=== PATIENT | female | born 1955 | race Caucasian/White ===

== ENCOUNTER 2018-08-21 11:12 | Emergency (ER) | payer OTHER ==
--- NOTE | 2018-08-21 12:09 | ER ---
Nurse's Notes [facility] Name: Ricardo Baldwin Age: 62 yrs Sex: Female : 1955 Arrival Date: 08/21/2018 Time: 11:15 Bed 17 Private MD: Madan Bolton T Diagnosis: Other and unspecified disorders of nose and nasal sinuses Presentation: 08/21 11:30 Presenting complaint: Patient states: tenderness to R side of nasal bridge since ss yesterday. Pt now reports paraesthesia sensation to R lower lid since early this morning. Transition of care: patient was not received from another setting of care. Onset of symptoms was August 20, 2018. Risk Assessment: Do you want to hurt yourself or someone else? Patient reports no desire to harm self or others. Initial Sepsis Screen: Does the patient meet any 2 criteria? No. Patient's initial sepsis screen is negative. Does the patient have a suspected source of infection? No. Patient's initial sepsis screen is negative. Care prior to arrival: None. 11:30 Method Of Arrival: Ambulatory ss 11:30 Acuity: DEANNA 4 ss Historical: - Allergies: 11:34 seafood; ss 11:34 PENICILLINS; ss 11:34 Sulfa (Sulfonamide Antibiotics); ss 11:34 Phenergan; ss 11:34 Stadol; ss - PMHx: 11:34 RLS; ss - PSHx: 11:34 Tonsillectomy; Appendectomy; Hysterectomy; L achilles repair; L total knee replacement; ss L humerus repair; laminectomy (lumbar); - Immunization history:: Adult Immunizations up to date. - Social history:: Smoking status: Patient/guardian denies using tobacco. - Ebola Screening: : Patient denies exposure to infectious person Patient denies travel to an Ebola-affected area in the 21 days before illness onset. Screenin:59 Abuse screen: Denies threats or abuse. Denies injuries from another. Nutritional ss screening: No deficits noted. Tuberculosis screening: Never had TB. Fall Risk None identified. Assessment: 11:30 General: Appears in no apparent distress. comfortable, Behavior is calm, cooperative, ss Denies fever, feeling ill, fatigue, chills. Pain: Complains of pain in R side bridge of nose Pain currently is 1 out of 10 on a pain scale. at worst was 5 out of 10 on a pain scale. Quality of pain is described as tender, Pain began "yesterday" Is continuous. Neuro: Level of Consciousness is awake, alert, obeys commands, Oriented to person, place, time, situation, Local [employer] are equal bilaterally Speech is normal, Facial symmetry appears normal, Pupils are PERRLA. Neuro: Reports paresthesias in R lower eyelid Denies weakness blurred vision dizziness, difficulty swallowing, numbness headache. Cardiovascular: Capillary refill < 3 seconds is brisk in bilateral fingers Patient's skin is warm and dry. Respiratory: Airway is patent Respiratory effort is even, unlabored, Respiratory pattern is regular, symmetrical. GI: Patient currently denies diarrhea, nausea, vomiting. : No signs and/or symptoms were reported regarding the genitourinary system. EENT: Nares are clear Oral mucosa is moist. Throat is clear. EENT: Denies blurred vision nasal congestion, difficulty swallowing. Derm: Skin is intact, is healthy with good turgor, Skin is dry, Skin is pink, warm \\T\\ dry. normal. Musculoskeletal: Circulation, motion, and sensation intact. Capillary refill < 3 seconds, is brisk, in bilateral fingers. Range of motion: intact in all extremities, Swelling absent. Vital Signs: 11:34 BP 141 / 87; Pulse 88; Resp 16; Pulse Ox 98% on R/A; Weight 95.25 kg; Height 5 ft. 8 ss in. (172.72 cm); Pain 1/10; 11:34 Body Mass Index 31.93 (95.25 kg, 172.72 cm) ED Course: 11:15 Patient arrived in ED. as 11:15 Madan Bolton MD is Private Physician. as 11:26 Trip Stapleton MD is Attending Physician. gs 11:32 Triage completed. ss 11:32 Neftaly Henson LVN is Primary Nurse. em 11:34 Arm band placed on right wrist. ss 11:59 Patient has correct armband on for positive identification. Bed in low position. Call ss light in reach. Side rails up X 1. 12:22 No provider procedures requiring assistance completed. Patient did not have IV access em during this emergency room visit. Administered Medications: No medications were administered Outcome: 12:08 Discharge ordered by . gs 12:22 Discharged to home ambulatory. em 12:22 Condition: good 12:22 Discharge instructions given to patient, Instructed on discharge instructions, follow up and referral plans. medication usage, Demonstrated understanding of instructions, follow-up care, medications, Prescriptions given X 1. 12:22 Patient left the ED. em Signatures: Neftaly Henson, MAT BELLAN Renetta Warren Shelby, JAZZY RN ss Trip Stapleton MD MD
--- NOTE | 2018-08-21 12:09 | EDPHYS ---
Physician Documentation [facility] Name: Ricardo Baldwin Age: 62 yrs Sex: Female : 1955 Arrival Date: 08/21/2018 Time: 11:15 Bed 17 Private MD: Madan Bolton T ED Physician Trip Stapleton HPI: 08/21 11:54 This 62 yrs old Female presents to ER via Ambulatory with complaints of Nose gs Pain - Swelling, Eye Problem. 11:54 The patient presents with pain. Onset: The symptoms/episode began/occurred acutely, gs yesterday. Modifying factors: The symptoms are alleviated by nothing. the symptoms are aggravated by touching. Associated signs and symptoms: Pertinent negatives: fever. Severity of symptoms: At their worst the symptoms were moderate in the emergency department the symptoms are unchanged. The patient has not experienced similar symptoms in the past. Historical: - Allergies: 11:34 seafood; ss 11:34 PENICILLINS; ss 11:34 Sulfa (Sulfonamide Antibiotics); ss 11:34 Phenergan; ss 11:34 Stadol; ss - PMHx: 11:34 RLS; ss - PSHx: 11:34 Tonsillectomy; Appendectomy; Hysterectomy; L achilles repair; L total knee replacement; ss L humerus repair; laminectomy (lumbar); - Immunization history:: Adult Immunizations up to date. - Social history:: Smoking status: Patient/guardian denies using tobacco. - Ebola Screening: : Patient denies exposure to infectious person Patient denies travel to an Ebola-affected area in the 21 days before illness onset. ROS: 11:54 All other systems are negative. gs Exam: 11:54 Head/Face: Normocephalic, atraumatic. Eyes: Pupils equal round and reactive to light, gs extra-ocular motions intact. Lids and lashes normal. Conjunctiva and sclera are non-icteric and not injected. Cornea within normal limits. Periorbital areas with no swelling, redness, or edema. Neck: Trachea midline, no thyromegaly or masses palpated, and no cervical lymphadenopathy. Supple, full range of motion without nuchal rigidity, or vertebral point tenderness. No Meningismus. Chest/axilla: Normal chest wall appearance and motion. Nontender with no deformity. No lesions are appreciated. Cardiovascular: Regular rate and rhythm with a normal S1 and S2. No gallops, murmurs, or rubs. Normal PMI, no JVD. No pulse deficits. Respiratory: Lungs have equal breath sounds bilaterally, clear to auscultation and percussion. No rales, rhonchi or wheezes noted. No increased work of breathing, no retractions or nasal flaring. Abdomen/GI: Soft, non-tender, with normal bowel sounds. No distension or tympany. No guarding or rebound. No evidence of tenderness throughout. Back: No spinal tenderness. No costovertebral tenderness. Full range of motion. Skin: Warm, dry with normal turgor. Normal color with no rashes, no lesions, and no evidence of cellulitis. MS/ Extremity: Pulses equal, no cyanosis. Neurovascular intact. Full, normal range of motion. Neuro: Awake and alert, GCS 15, oriented to person, place, time, and situation. Cranial nerves II-XII grossly intact. Motor strength 5/5 in all extremities. Sensory grossly intact. Cerebellar exam normal. Normal gait. 11:54 Constitutional: The patient appears alert, awake. 11:54 ENT: TM's: are normal, Nose: Nasal mucosa: edematous, erythematous, tender. 12:09 Head/face: Sinus tenderness, that is mild, is located over the right ethmoid sinus. Vital Signs: 11:34 BP 141 / 87; Pulse 88; Resp 16; Pulse Ox 98% on R/A; Weight 95.25 kg; Height 5 ft. 8 ss in. (172.72 cm); Pain 1/10; 11:34 Body Mass Index 31.93 (95.25 kg, 172.72 cm) MDM: 11:50 Patient medically screened. 11:54 Data reviewed: vital signs, nurses notes. Counseling: I had a detailed discussion with the patient and/or guardian regarding: the historical points, exam findings, and any diagnostic results supporting the discharge/admit diagnosis, the need for outpatient follow up. 12:09 Differential diagnosis: sinusitis. Counseling: I had a detailed discussion with the patient and/or guardian regarding: the presence of at least one elevated blood pressure reading (>120/80) during this emergency department visit. Response to treatment: There is no appreciated change of the patient's symptoms at this time. Special discussion: I have referred the patient to see his PCP for further evaluation of high blood pressure. Administered Medications: No medications were administered Disposition: 08/21/18 12:08 Discharged to Home. Impression: Other and unspecified disorders of nose and nasal sinuses. - Condition is Stable. - Discharge Instructions: Managing Your Hypertension, Nonallergic Rhinitis. - Prescriptions for Clindamycin HCl 150 mg Oral Capsule - take 1 capsule by ORAL route every 8 hours .; 15 capsule. - Medication Reconciliation Form, Thank You Letter, Antibiotic Education, Prescription Opioid Use form. - Follow up: Private Physician; When: 2 - 3 days; Reason: Re-evaluation by your physician. Signatures: Neftaly Henson LVN LVN em Ginette Chatman RN RN ss Trip Stapleton MD MD gs Corrections: (The following items were deleted from the chart) 12:15 12:08 08/21/2018 12:08 Discharged to Home. Impression: rhinosinusitus. Condition is gs Stable. Forms are Medication Reconciliation Form, Thank You Letter, Antibiotic Education, Prescription Opioid Use. Follow up: Private Physician; When: 2 - 3 days; Reason: Re-evaluation by your physician. gs 12:22 12:15 08/21/2018 12:08 Discharged to Home. Impression: Other and unspecified disorders em of nose and nasal sinuses. Condition is Stable. Discharge Instructions: Managing Your Hypertension, Nonallergic Rhinitis. Prescriptions for Clindamycin HCl 150 mg Oral Capsule - take 1 capsule by ORAL route every 8 hours .; 15 capsule. and Forms are Medication Reconciliation Form, Thank You Letter, Antibiotic Education, Prescription Opioid Use. Follow up: Private Physician; When: 2 - 3 days; Reason: Re-evaluation by your physician. gs
== END 2018-08-21 12:22 | disposition home or self-care (01) ==
LOC: ER 11:12
DX: J34.89 Other specified disorders of nose and nasal sinuses (principal); Z88.0 Allergy status to penicillin; Z88.2 Allergy status to sulfonamides; Z88.5 Allergy status to narcotic agent; Z88.8 Allergy status to other drugs, medicaments and biological substances; Z91.013 Allergy to seafood
CPT/HCPCS: 99281

== ENCOUNTER 2020-05-14 | Emergency (ER) | payer OTHER ==
--- NOTE | 2020-05-14 17:05 | ER ---
Nurse's Notes [facility] Name: Ricardo Balwdin Age: 64 yrs Sex: Female : 1955 Arrival Date: 05/14/2020 Time: 15:35 Bed 8 Private MD: Madan Bolton T Diagnosis: COVID Presentation: 05/14 15:59 Chief complaint: Patient states: was at [place] on 05/08/20 and had a 23 hr observation em there, was given the steroids, albuterol treatments and finished Z-pack, Dr. Bolton told her to come to the ER for reevaluation, pt reports chest tightness and shortness of breath on exertion, denies fever, covid swab there was negative. Coronavirus screen: The client reports previous COVID testing was negative. Date of collection: May 08, 2020. Ebola Screen: Patient negative for fever greater than or equal to 101.5 degrees Fahrenheit, and additional compatible Ebola Virus Disease symptoms Patient denies exposure to infectious person. Patient denies travel to an Ebola-affected area in the 21 days before illness onset. No symptoms or risks identified at this time. Initial Sepsis Screen: Does the patient meet any 2 criteria? HR > 90 bpm. No. Patient's initial sepsis screen is negative. Does the patient have a suspected source of infection? Yes: Productive cough/pneumonia. Risk Assessment: Do you want to hurt yourself or someone else? Patient reports no desire to harm self or others. Onset of symptoms was May 08, 2020. 15:59 Method Of Arrival: Ambulatory em 15:59 Acuity: DEANNA 3 em Triage Assessment: 16:35 Respiratory: the patient has mild shortness of breath. vg1 Historical: - Allergies: 16:06 PENICILLINS; em 16:06 Phenergan; em 16:06 SEAFOOD; em 16:06 Stadol; em 16:06 Sulfa (Sulfonamide Antibiotics); em - PMHx: 16:06 RLS; em - PSHx: 16:06 Tonsillectomy; Appendectomy; Hysterectomy; L achilles repair; L humerus repair; L total em knee replacement; laminectomy (lumbar); - Immunization history:: Adult Immunizations up to date. - Social history:: Smoking status: Patient denies any tobacco usage or history of. Screenin:35 Abuse screen: Denies threats or abuse. Nutritional screening: No deficits noted. vg1 Tuberculosis screening: No symptoms or risk factors identified. Fall Risk No fall in past 12 months (0 pts). No secondary diagnosis (0 pts). No IV (0 pts). Ambulatory Aid- None/Bed Rest/Nurse Assist (0 pts). Gait- Normal/Bed Rest/Wheelchair (0 pts) Mental Status- Oriented to own ability (0 pts). Total Garcia Fall Scale indicates No Risk (0-24 pts). Assessment: 16:30 General: Appears in no apparent distress. comfortable, Behavior is calm, cooperative. vg1 Pain: Denies pain. Neuro: Level of Consciousness is awake, alert, obeys commands, Oriented to person, place, time, situation. Cardiovascular: Patient's skin is warm and dry. Rhythm is. Respiratory: Airway is patent Respiratory effort is even, unlabored, Breath sounds are clear bilaterally. GI: No signs and/or symptoms were reported involving the gastrointestinal system. : No signs and/or symptoms were reported regarding the genitourinary system. EENT: No signs and/or symptoms were reported regarding the EENT system. Derm: Skin is pink, warm \T\ dry. Musculoskeletal: Range of motion: intact in all extremities. Vital Signs: 15:59 BP 138 / 96; Pulse 91; Resp 18; Temp 97.8; Pulse Ox 99% on R/A; Weight 102.06 kg; em Height 5 ft. 8 in. (172.72 cm); Pain 0/10; 16:30 BP 138 / 91; Pulse 87; Resp 18; Temp 97.9; Pulse Ox 98% on R/A; Pain 0/10; vg1 15:59 Body Mass Index 34.21 (102.06 kg, 172.72 cm) em ED Course: 15:35 Patient arrived in ED. rg4 15:35 Madan Bolton MD is Private Physician. rg4 16:04 Triage completed. em 16:06 Arm band placed on. em 16:13 Sam Salvador MD is Attending Physician. ps1 16:15 Madan Bolton MD is Referral Physician. ps1 16:24 Savannah Olivas, RN is Primary Nurse. sv 16:25 Alice Amezquita, RN is Primary Nurse. vg1 16:35 Patient has correct armband on for positive identification. Bed in low position. Call vg1 light in reach. Pulse ox on. NIBP on. 16:54 No provider procedures requiring assistance completed. vg1 17:04 Madan Bolton MD is Referral Physician. ps1 Administered Medications: No medications were administered Outcome: 16:16 Discharge ordered by MD. ps1 17:03 Medical screen evaluation completed per provider. Patient declined treatment. vg1 17:03 Condition: stable 17:04 Discharge ordered by . ps1 17:05 Patient left the ED. vg1 Signatures: Savannah Olivas, RN RN Neftaly Munroe, RN Loida Meade rg4 Sam Salvador MD MD ps1 Alirio, Alice RN RN vg1
--- NOTE | 2020-05-14 17:05 | EDPHYS ---
Physician Documentation [facility] Name: Ricardo Baldwin Age: 64 yrs Sex: Female : 1955 Arrival Date: 05/14/2020 Time: 15:35 Bed 8 Private MD: Madan Bolton T ED Physician Sam Salvador HPI: 05/14 16:50 This 64 yrs old Female presents to ER via Ambulatory with complaints of ps1 Cough, Shortness Of Breath, Covid+. 16:50 patient was seen and evaluated previously at [place]. Had CT cw COVID / no PE. Taking ps1 ASA. No change in symptoms. Came for reevaluation. Appx day 10. No chest pain. Has AVINASH and cough which is persistent. No hypoxia. 1 minute walk test 98%. . Historical: - Allergies: 16:06 PENICILLINS; em 16:06 Phenergan; em 16:06 SEAFOOD; em 16:06 Stadol; em 16:06 Sulfa (Sulfonamide Antibiotics); em - PMHx: 16:06 RLS; em - PSHx: 16:06 Tonsillectomy; Appendectomy; Hysterectomy; L achilles repair; L humerus repair; L total em knee replacement; laminectomy (lumbar); - Immunization history:: Adult Immunizations up to date. - Social history:: Smoking status: Patient denies any tobacco usage or history of. ROS: 16:50 Cardiovascular: Negative for chest pain, palpitations, and edema, Abdomen/GI: Negative ps1 for abdominal pain, nausea, vomiting, diarrhea, and constipation, MS/Extremity: Negative for injury and deformity, Skin: Negative for injury, rash, and discoloration, Neuro: Negative for headache, weakness, numbness, tingling, and seizure. 16:50 Respiratory: Positive for cough, shortness of breath. Exam: 16:52 Constitutional: This is a well developed, well nourished patient who is awake, alert, ps1 and in no acute distress. Head/Face: Normocephalic, atraumatic. Chest/axilla: Normal chest wall appearance and motion. Nontender with no deformity. No lesions are appreciated. Cardiovascular: Regular rate and rhythm. No gallops, murmurs, or rubs. Normal PMI, no JVD. No pulse deficits. Respiratory: Lungs have equal breath sounds bilaterally, clear to auscultation and percussion. No rales, rhonchi or wheezes noted. No increased work of breathing, no retractions or nasal flaring. Abdomen/GI: Soft, non-tender, with normal bowel sounds. No distension or tympany. No guarding or rebound. No evidence of tenderness throughout. MS/ Extremity: Pulses equal, no cyanosis. Neurovascular intact. Full, normal range of motion. Neuro: Awake and alert, GCS 15, oriented to person, place, time, and situation. Cranial nerves II-XII grossly intact. Sensory grossly intact. Vital Signs: 15:59 BP 138 / 96; Pulse 91; Resp 18; Temp 97.8; Pulse Ox 99% on R/A; Weight 102.06 kg; em Height 5 ft. 8 in. (172.72 cm); Pain 0/10; 16:30 BP 138 / 91; Pulse 87; Resp 18; Temp 97.9; Pulse Ox 98% on R/A; Pain 0/10; vg1 15:59 Body Mass Index 34.21 (102.06 kg, 172.72 cm) em MDM: 16:16 Patient medically screened. ps1 16:52 Data reviewed: vital signs, nurses notes. ps1 Administered Medications: No medications were administered Disposition: 16:52 Known COVID positive. ps1 Disposition: 05/14/20 17:04 Discharged to Home. Impression: COVID. - Condition is Stable. - Medication Reconciliation Form, Thank You Letter, Antibiotic Education, Prescription Opioid Use form. - Follow up: Madan Bolton MD; When: As needed; Reason: Further diagnostic work-up. Follow up: Emergency Department; When: As needed; Reason: Fever > 102 F, Trouble breathing, Worsening of condition. - Problem is an ongoing problem. - Symptoms are unchanged. Signatures: Neftaly Henson RN RN em Sam Salvador MD MD ps1 Alice Amezquita RN RN vg1 Corrections: (The following items were deleted from the chart) 16:16 16:16 05/14/2020 16:16 Discharged to Home. Impression: Fatigue. Condition is Stable. ps1 Forms are Medication Reconciliation Form, Thank You Letter, Antibiotic Education, Prescription Opioid Use. Follow up: Madan Bolton; When: 48 Hours; Reason: Recheck today's complaints, Re-evaluation by your physician. Follow up: Emergency Department; When: As needed; Reason: Fever > 102 F, Worsening of condition. Problem is new. Symptoms have improved. ps1 17:05 17:04 05/14/2020 17:04 Discharged to Home. Impression: COVID. Condition is Stable. vg1 Forms are Medication Reconciliation Form, Thank You Letter, Antibiotic Education, Prescription Opioid Use. Follow up: Madan Bolton; When: As needed; Reason: Further diagnostic work-up. Follow up: Emergency Department; When: As needed; Reason: Fever > 102 F, Trouble breathing, Worsening of condition. Problem is an ongoing problem. Symptoms are unchanged. ps1
== END 2020-05-14 17:05 | disposition home or self-care (01) ==
CPT/HCPCS: 99283

== ENCOUNTER 2023-08-03 17:27 | Observation (INO) | payer OTHER ==
--- OUTSIDE RECORDS SUMMARY | 2023-08-03 17:30 | XMS REPORT | Continuity of Care Document ---
Author Name Unknown Address [address] [facility] [place] [address] [facility] thconnect Address [address] [facility] [address] [place] [address] Care Team Providers [employer] Community Service Officer Name Role Phone Lorenzo Ansari Attending Clinician [phone] LORENZO ANSARI Attending Clinician Unavailab le Doctor Unassigned, [place] Attending Clinician U navailable Payers Payer Name Policy Type Policy Number Effective Date Expirati on Date Source Problems Condition Name Condition Details Condition Category Status Onset Date Resolution Date Last Treatment Date Treating Clinician Comments Source Total knee replacemen t status Total knee replacemen t status Disease Active 2016-06 00:00: 00 [facility] Obesity (BMI 30-39.9) Obesity (BMI 30-39.9) Disease Active 2016-06 00:00: 00 [facility] Left knee pain Left knee pain Disease Active 09-10 00:00: 00 [facility] Allergies, Adverse Reactions, Alerts Allergy Name Allergy Type Status Severity Reaction(s) Onset Date Inactive Date Treating Clinician Comments Source Propoxyp hene N-Acetam inophen Propensi ty to adverse reaction s Active Itching 11-29 00:00: 00 [facility] Droperid ol Propensi ty to adverse reaction s Active Itching 11-29 00:00: 00 Restless legs [facility] Levoflox acin Propensi ty to adverse reaction s Active Hives 11-29 00:00: 00 [facility] Morphine Propensi ty to adverse reaction s Active Itching 11-29 00:00: 00 Can have Morphine if it is given with Benadryl [facility] Butorpha nol Tartrate Propensi ty to adverse reaction s Active Itching 11-29 00:00: 00 Can have Stadol if it is given with Benadryl [facility] Hydrocod one-Acet aminophe n Propensi ty to adverse reaction s Active Itching 11-29 00:00: 00 [facility] PROPOXYP HENE N-ACETAM INOPHEN DRUG Active ITCHING 11-29 00:00: 00 [facility] DROPERID OL DRUG INGREDI Active ITCHING 11-29 00:00: 00 [facility] LEVOFLOX ACIN DRUG INGREDI Active Hives 11-29 00:00: 00 [facility] MORPHINE DRUG INGREDI Active ITCHING 11-29 00:00: 00 [facility] BUTORPHA NOL TARTRATE DRUG INGREDI Active ITCHING 11-29 00:00: 00 [facility] HYDROCOD ONE-ACET AMINOPHE N DRUG Active ITCHING 11-29 00:00: 00 [facility] PENICILL INS Drug Class Active Hives 09-10 00:00: 00 [facility] PHENERGA N DM DRUG Active Other-Cmnt 09-10 00:00: 00 [facility] SULFA (SULFONA MIDE ANTIBIOT ICS) Drug Class Active Hives 09-10 00:00: 00 [facility] Penicill ins Propensi ty to adverse reaction s Active Swelling 09-10 00:00: 00 [facility] Phenerga n Dm Propensi ty to adverse reaction s Active Other - See comments 09-10 00:00: 00 Restless leg [facility] Sulfa (Sulfona mide Antibiot ics) Propensi ty to adverse reaction s Active Swelling 09-10 00:00: 00 [facility] Social History Social Habit Start Date Stop Date Quantity Comments Source Tobacco use and exposure 2018-01-05:00:00 2018-01-05 00:00:00 Never used [facility] Alcohol intake 2018-01-05 00:00:00 2018-01-05 00:00:00 Current drinker of alcohol (finding) [facility] Alcohol Comment 2017-04-17 00:00:00 2017-04-17 00:00:00 Occasional Drinker [facility] Sex Ass[birth year] At 1955 00:00:00 1955 00:00:00 [facility] Smoking Status Start Date Stop Date Source Never smoker [facility] Medications Ordered Medication Name Filled Medication Name Start Date Stop Date Current Medication? Ordering Clinician Indication Dosage Frequency Signature (SIG) Comments Components Source pramipexole (MIRAPEX) 0.5 mg tablet 07-02 15:08: 46 Yes .5mg Take 0.5 mg by mouth at bedtime. [facility] pantoprazol e (PROTONIX) 40 mg EC tablet 07-02 15:08: 46 Yes 40mg Take 40 mg by mouth daily. [facility] pramipexole (MIRAPEX) 0.5 mg tablet 07-02 15:08: 46 Yes .5mg Take 0.5 mg by mouth at bedtime. [facility] pantoprazol e (PROTONIX) 40 mg EC tablet 07-02 15:08: 46 Yes 40mg Take 40 mg by mouth daily. [facility] Cranberry 400 mg Cap 06-04 14:50: 51 Yes 1{capsu le} Take 1 capsule by mouth at bedtime. [facility] Cranberry 400 mg Cap 06-04 14:50: 51 Yes 1{capsu le} Take 1 capsule by mouth at bedtime. [facility] enoxaparin 40 mg/0.4 mL injection 2016-06 00:00: 00 Yes 40mg inject 0.4 mL under the skin daily. [facility] enoxaparin 40 mg/0.4 mL injection 2016-06 00:00: 00 Yes 40mg inject 0.4 mL under the skin daily. [facility] traMADOL 50 mg tablet 2016-06 00:00: 00 Yes 50mg Take 1 tablet by mouth every 4 (four) hours as needed for Pain (scale 7-10). [facility] cyclobenzap rine 10 mg tablet 2016-06 00:00: 00 Yes TAKE 1 TABLET BY MOUTH 3 TIMES A DAY NEEDED FOR MUSCLE SPASMS [facility] traMADOL 50 mg tablet 2016-06 00:00: 00 Yes 50mg Take 1 tablet by mouth every 4 (four) hours as needed for Pain (scale 7-10). [facility] cyclobenzap rine 10 mg tablet 2016-06 00:00: 00 Yes TAKE 1 TABLET BY MOUTH 3 TIMES A DAY NEEDED FOR MUSCLE SPASMS [facility] gabapentin (NEURONTIN) 600 mg tablet 09-11 00:00: 00 Yes 600mg Take 600 mg by mouth at bedtime. [facility] gabapentin (NEURONTIN) 600 mg tablet 09-11 00:00: 00 Yes 600mg Take 600 mg by mouth at bedtime. [facility] Procedures Procedure Date / Time Performed Performing Clinicia n Source XR CHEST 2 VW 2020-09-21 18:49:54 [facility] 2020-09-21 18:33:15 Docto r Unassigned, [place] [facility] Encounters Start Date/Time End Date/Time Encounter Type Admission Type Attending Clinicians Care Facility Care Department Encounter ID Source 2020-09-21 13:36:37 2020-09-21 23:59:00 Hospital Encounter Lorenzo Ansari [facility] [id number] [facility] 2020-09-21 00:00:00 2020-09-21 00:00:00 Outpatient R LORENZO ANSRAI [facility] [id number] [facility] 2020-09-21 00:00:00 2020-09-21 00:00:00 Orders Only Doctor Unassigned, [place] [facility] [id number] [facility] Results Test Description Test Time Test Comments Results Resul t Comments Source XR CHEST 2 VW 2020-04-2 3 19:24:28 No lung opacity. Disclaimer: Generally, the findings on chest imaging in COVID-19 are notspecific, and overlap with other infections, including influenza, H1N1,SARS and MERS.According to the Centers for Disease Control (CDC) and the [employer], viral testing remains the only specific method of diagnosiseven if CXR or CT findings are suggestive of COVID-19. PROCEDURE: XR CHEST 2 09/21/2020 1:40 PM CLINICAL INDICATION: Clinical diagnosis of COVID-19 COMPARISON: Radiograph of 04/16/2017 TECHNIQUE: PA and lateral views of the chest FINDINGS: The lungs are clear. There is no pleural effusion. ?No pneumothorax. The cardiac size is within normal limits. No aggressive osseous lesion. [facility], Radiant Results Inft User - 09/21/2020 2:25 PM CDTPROCEDURE: XR CHEST 2 09/21/2020 1:40 PMCLINICAL INDICATION: Clinical diagnosis of COVID-19 COMPARISON: Radiograph of 04/16/2017TECHNIQU E: PA and lateral views of the chestFINDINGS:The lungs are clear. There is no pleural effusion. No pneumothorax. The cardiac size is within normal limits. No aggressive osseous lesion.IMPRESSIONN o lung opacity.Disclaimer : Generally, the findings on chest imaging in COVID-19 are notspecific, and overlap with other infections, including influenza, H1N1,SARS and MERS.According to the Centers for Disease Control (CDC) and the [employer], viral testing remains the only specific method of diagnosiseven if CXR or CT findings are suggestive of COVID-19. [facility]
[2023-08-03] MEDS ORDERED: ASPIRIN 81 MG CHEWABLE TABLET ONE (17:55)
[2023-08-03] MEDS ORDERED: NITROGLYCERIN 0.4 MG/TAB SL ONE (18:03)
--- NOTE | 2023-08-03 18:20 | RAD REPORT ---
EXAM DESCRIPTION: RADChest Single View08/03/2023 5:48 pm CLINICAL HISTORY: CHEST PAIN COMPARISON: Chest Pa And Lat (2 Views) dated 12/24/2021; Chest Pa And Lat (2 Views) dated 05/30/2020; ABDOMEN 1 VIEW KUB dated 10/08/2011 TECHNIQUE: Portable AP view of the chest. FINDINGS: The lungs are clear. No pneumothorax or effusion. The cardiomediastinal contours are unre markable. IMPRESSION: No acute cardiopulmonary process.
[2023-08-03 18:32] LABS: Absolute Eosinophils 0.1 K/uL (0-0.5); Absolute Lymphocytes (CBC) 1.5 K/uL (0.7-4.9); Basophils % 0.4 % (0-1.3); Eosinophils % 1.8 % (0-4.4); MCV 92.8 fL (80-100); MPV 9.1 fL (7.6-11.3); Platelets 185 thou/uL (152-406); RBC Red Blood Cell Count 4.09 M/uL (3.86-4.86)
[2023-08-03 18:46] LABS: Albumin 3.6 g/dL (3.4-5.0); Anion Gap 8.8 mEq/L (5.0-15.0); Bilirubin Direct 0.2 mg/dL (0-0.2); Bilirubin Total 1.2 mg/dL (0.2-1.0); Globulin 3.5 g/dL (2.3-3.5); Magnesium 2.3 mg/dL (1.6-2.4); Potassium 3.8 mEq/L (3.5-5.1); Protein, Total 7.1 g/dL (6.4-8.2); Troponin High Sensitivity 3.6 pg/mL (<58.9)
[2023-08-03] MEDS ORDERED: MAGNES/ALUMIN/SIMET 30ML UCUP ONE (19:13)
[2023-08-03] MEDS ORDERED: LIDOCAINE VISCOUS 2% 10ML ORAL SOLN ONE ×2 (19:13→19:14)
[2023-08-03 19:20] LABS: Protime INR 1.13
--- NOTE | 2023-08-03 20:35 | RAD REPORT ---
EXAM DESCRIPTION: CT - Angio Aorta For Dissection - 08/03/2023 7:34 pm CLINICAL HISTORY: PAIN COMPARISON: Chest Single View dated 08/03/2023 TECHNIQUE: Thin axial CT images of the chest, abdomen, and pelvis were obtained during administratio n of 100mL Isovue 370 IV contrast. Sagittal and coronal reconstructions as well as maximal intensity projection reconstruction were generated and reviewed per an aortic angiography protocol. All CT scans are performed using dose optimization technique as appropriate and may include automated exposure control or mA/KV adjustment according to patient size. FINDINGS: Aorta is normal in diameter with no dissection or other acute aortic findings. Reconstruct ion images show no significant findings. Pulmonary arteries are normal as well. No mass or infiltrate in the lung parenchyma. No pleural thickening, pleural effusion or pneumothorax . No abnormal mediastinal or hilar mass or lymphadenopathy seen. No chest wall mass or abnormal axillar y lymphadenopathy. Celiac, SMA and renal arteries show no suspicious findings. Subcapsular lobulated left liver lobe 4.3 cm cyst. Solid abdominal viscera and bowel show no significant findings. No mass or abnormal lymphad enopathy. IMPRESSION: No acute abnormalities on CT angiogram of the aorta. No other suspicious findings on chest, abdomen and pelvis examination.
--- NOTE | 2023-08-03 20:52 | EDPHYS ---
Physician Documentation [facility] Name: Ricardo Baldwin Age: 67 yrs Sex: Female : 1955 Arrival Date: 08/03/2023 Time: 17:27 Bed 6 Private MD: ED Physician Edwar Brandon HPI: 08/02 17:45 This 67 yrs old Female presents to ER via Ambulatory with complaints of Chest Pain, cp Shortness Of Breath. 17:45 The patient or guardian reports chest pain that is located primarily in the anterior cp chest wall, substernal. Onset: 4 hour(s) ago. The pain radiates to between shoulder blades. 17:45 Associated signs and symptoms: Pertinent positives: shortness of breath. cp 17:45 The chest pain is described as a pressure. Duration: The patient or guardian reports a cp single episode, that is still ongoing, but improving. 17:45 Patient reports chest pain started after working outside in yard all day and unloading cp truck. HX of asthma, but symptoms different. Tried using inhaler w/o relief. Historical: - Allergies: 18:32 PENICILLINS; ko1 18:32 Phenergan; ko1 18:32 SEAFOOD; ko1 18:32 Stadol; ko1 18:32 Sulfa (Sulfonamide Antibiotics); ko1 - PMHx: 18:32 RLS; ko1 - Immunization history:: Adult Immunizations up to date. - Social history:: Smoking status: Patient denies any tobacco usage or history of. ROS: 17:50 Constitutional: Negative for body aches, chills, fever, poor PO intake, cp 17:50 Cardiovascular: Positive for chest pain, cp 17:50 Eyes: Negative for injury, pain, redness, and discharge, cp 17:50 ENT: Negative for drainage from ear(s), ear pain, sore throat, difficulty swallowing, difficulty handling secretions, 17:50 Respiratory: Positive for shortness of breath, on exertion. Negative for cough, wheezing, 17:50 Abdomen/GI: Negative for abdominal pain, vomiting, diarrhea, constipation, 17:50 Back: Positive for radiated pain, of the thoracic area, 17:50 Neuro: Negative for altered mental status, dizziness, headache, syncope, near syncope, weakness, 17:50 All other systems are negative, Exam: 17:45 ECG was reviewed by the Attending Physician. cp 17:53 Constitutional: The patient appears in no acute distress, alert, awake, cp non-diaphoretic, non-toxic, well developed, well nourished, 17:53 Head/Face: Normocephalic, atraumatic. cp 17:53 Eyes: Periorbital structures: appear normal, Conjunctiva: normal, no exudate, no injection, Sclera: no appreciated abnormality, Lids and lashes: appear normal, bilaterally, 17:53 ENT: External ear(s): are unremarkable, Nose: is normal, Mouth: Lips: moist, Oral mucosa: pink and intact, moist, Posterior pharynx: is normal, airway is patent, no erythema, no exudate, 17:53 Neck: ROM/movement: is normal, is supple, without pain, no range of motions limitations, 17:53 Chest/axilla: Inspection: normal, 17:53 Cardiovascular: Rate: normal, Rhythm: regular, Edema: is not appreciated, JVD: is not appreciated, 17:53 Respiratory: the patient does not display signs of respiratory distress, Respirations: normal, no use of accessory muscles, no retractions, labored breathing, is not present, Breath sounds: are clear throughout, no decreased breath sounds, no stridor, no wheezing, 17:53 Abdomen/GI: Inspection: abdomen appears normal, Palpation: abdomen is soft and non-tender, in all quadrants, 17:53 Back: ROM is normal, 17:53 Neuro: Orientation: to person, place \T\ time. Mentation: is normal, Motor: moves all fours, strength is normal, Sensation: is normal, Vital Signs: 17:46 BP 156 / 88; Pulse 81; Resp 16; Temp 97.7; Pulse Ox 100% on R/A; Pain 8/10; tl4 18:32 BP 151 / 94; Pulse 78; Resp 15; Pulse Ox 99% ; ko1 18:51 BP 119 / 80; Pulse 62; Resp 18; Pulse Ox 99% on R/A; rs5 19:15 BP 117 / 74; Pulse 64; Resp 16; Pulse Ox 99% on R/A; jb4 20:30 BP 149 / 80; Pulse 59; Resp 16; Pulse Ox 100% on R/A; jb4 21:30 BP 134 / 85; Pulse 63; Resp 16; Pulse Ox 100% on R/A; jb4 22:30 BP 121 / 77; Pulse 63; Resp 16; Pulse Ox 97% on R/A; jb4 17:46 Pain Scale: Adult tl4 MDM: 17:38 Patient medically screened. cp 20:55 The patient was given aspirin in the Emergency Department. cp 20:55 Differential diagnosis: abnormal EKG, acute myocardial infarction, pericarditis, cp pleurisy, pneumonia, pneumothorax, pulmonary embolus, stable angina, thoracic aortic disection, unstable angina. Data reviewed: vital signs, nurses notes, lab test result(s), EKG, radiologic studies, CT scan. Consideration of Admission/Observation Patient was admitted/placed on observation. Management of patient was discussed with the following: Hospitalist: DR Holman will admit after discussion. Independent interpretation of the following test(s) in the Emergency Department EKG: See my EKG interpretation above. Counseling: I had a detailed discussion with the patient and/or guardian regarding the historical points, exam findings, and any diagnostic results supporting the discharge/admit diagnosis, lab results, radiology results. 03 17:38 Order name: Basic Metabolic Panel; Complete Time: 18:57 cp 03/04 17:38 Order name: CBC with Diff; Complete Time: 18:57 cp /04 17:38 Order name: LFT's; Complete Time: 18:57 cp 03/04 17:38 Order name: Magnesium; Complete Time: 18:57 cp 03/04 17:38 Order name: NT PRO-BNP; Complete Time: 18:57 cp 03/04 17:38 Order name: PT-INR; Complete Time: 19:31 cp 03/04 17:38 Order name: Troponin HS; Complete Time: 18:57 cp 03/04 21:28 Order name: CBC with Automated Diff EDMS 08/02 21:28 Order name: CBC with Automated Diff EDMS 08/02 21:28 Order name: CBC with Automated Diff EDMS 08/02 21:28 Order name: Lipid Profile EDMS / 21:28 Order name: Lipid Profile EDMS / 17:38 Order name: XRAY Chest (1 view); Complete Time: 18:57 cp 03/04 18:00 Order name: CT Aorta for Dissection; Complete Time: 20:41 cp 03/04 20:41 Interpretation: Report reviewed. cp 08/02 21:28 Order name: Echo with Doppler EDMS 08/02 17:38 Order name: EKG; Complete Time: 17:39 cp 08/02 21:28 Order name: CONS Physician Consult EDMS 08/02 17:38 Order name: Cardiac monitoring; Complete Time: 17:45 cp 08/02 17:38 Order name: EKG - Nurse/Tech; Complete Time: 17:45 cp 08/02 17:38 Order name: IV Saline Lock; Complete Time: 18:15 cp 08/02 17:38 Order name: Labs collected and sent; Complete Time: 18:15 cp 08/02 17:38 Order name: O2 Per Protocol; Complete Time: 17:45 cp 08/02 17:38 Order name: O2 Sat Monitoring; Complete Time: 17:45 cp 08/02 18:41 Order name: Misc. Order: recollect light blue, underfilled per bean; Complete Time: iw 19:09 EC:45 Rate is 68 beats/min. Rhythm is regular. UT interval is normal. QRS interval is normal. cp QT interval is normal. T waves are Inverted in lead aVR. Interpreted by me. Reviewed by me. Administered Medications: 17:56 Drug: Aspirin PO Chewable Tablet 324 mg PO once; 81 mg tablets x 4 Route: PO; ko1 18:05 Drug: Nitroglycerin Sublingual 0.4 mg Sublingual once Route: Sublingual; ko1 19:20 Drug: GI Cocktail without - (Maalox PO 30 ml, Lidocaine Mucous Membrane 2 % 15 jb4 ml) PO once Route: PO; Disposition: 08/03 09:05 Co-signature as Attending Physician, Edwar Brandon MD I reviewed the patient's care rn provided by the Advanced Practice Provider and agree with the diagnosis and treatment plan. Disposition Summary: 08/03/23 20:51 Hospitalization Ordered Notes: Hospitalization Status: Observation cp Provider: Oniel Holman cp Location: Telemetry/MedSurg (observation) cp Condition: Stable cp Problem: new cp Symptoms: have improved cp Bed/Room Type: Standard Room Assignment: 228(08/03/23 21:42) cg Diagnosis - Angina pectoris, unspecified cp Forms: - Medication Reconciliation Form cp - SBAR form cp - Leadership Thank You Letter cp Signatures: Dispatcher [employer] Daniella Williamson, RN RN Edwar Cristobal MD MD rn Page, Corey, PA PA cp Autumn Amezquita RN RN cg Bryson, James, RN RN jb4 Michelle Burnette RN RN ko1 Corrections: (The following items were deleted from the chart) 08/02 21:42 20:51 cp cg
--- NOTE | 2023-08-03 20:52 | ER ---
Nurse's Notes [facility] Name: Ricardo Baldwin Age: 67 yrs Sex: Female : 1955 Arrival Date: 08/03/2023 Time: 17:27 Bed 6 Private MD: Diagnosis: Angina pectoris, unspecified Presentation: 08/02 17:46 Chief complaint: Patient states: Pt c/o gradual onset of midsternal chest tl4 pressure/discomfort that radiates into her back x 4 hours. Discomfort started while working in the garden. Discomfort gets worse with movement. Pt also c/o SOB. No relief with inhaler use. Coronavirus screen: At this time, the client does not indicate any symptoms associated with coronavirus-19. Ebola Screen: No symptoms or risks identified at this time. Initial Sepsis Screen: Does the patient meet any 2 criteria? No. Patient's initial sepsis screen is negative. Does the patient have a suspected source of infection? No. Patient's initial sepsis screen is negative. Risk Assessment: Do you want to hurt yourself or someone else? Patient reports no desire to harm self or others. Onset of symptoms was August 03, 2023 at 13:00. 17:46 Method Of Arrival: Ambulatory tl4 17:46 Acuity: DEANNA 2 tl4 Triage Assessment: 17:46 General: Appears uncomfortable, Behavior is calm, cooperative. Pain: Complains of pain tl4 in chest Pain radiates to back. EENT: No deficits noted. No signs and/or symptoms were reported regarding the EENT system. Neuro: No deficits noted. Denies weakness blurred vision dizziness, difficulty swallowing, headache. Cardiovascular: Reports chest pain, shortness of breath, Denies diaphoresis, nausea, palpitations, syncope. Respiratory: Reports shortness of breath Denies cough, labored breathing, pain with respiration, pain with movement. GI: No deficits noted. No signs and/or symptoms were reported involving the gastrointestinal system. : No deficits noted. No signs and/or symptoms were reported regarding the genitourinary system. Derm: No deficits noted. No signs and/or symptoms reported regarding the dermatologic system. Historical: - Allergies: 18:32 PENICILLINS; ko1 18:32 Phenergan; ko1 18:32 SEAFOOD; ko1 18:32 Stadol; ko1 18:32 Sulfa (Sulfonamide Antibiotics); ko1 - PMHx: 18:32 RLS; ko1 - Immunization history:: Adult Immunizations up to date. - Social history:: Smoking status: Patient denies any tobacco usage or history of. Screenin:00 [facility] ED Fall Risk Assessment (Adult) History of falling in the last 3 months, ko1 including since admission No falls in past 3 months (0 pts) Confusion or Disorientation No (0 pts) Intoxicated or Sedated No (0 pts) Impaired Gait No (0 pts) Mobility Assist Device Used No (0 pt) Altered Elimination No (0 pt) Score/Fall Risk Level 0 - 2 = Low Risk Oriented to surroundings, Maintained a safe environment, Educated pt \T\ family on fall prevention, incl call for assistance when getting out of bed, Assessed \T\ reinforced patient's understanding of fall precautions, Provided non-skid footwear, Hourly rounding (assess needs \T\ fall precautionary measures) done, Used ambulatory aids as needed (educated on \T\ assisted with), Used gait belt as appropriate. Abuse screen: Denies threats or abuse. Denies injuries from another. Nutritional screening: No deficits noted. Tuberculosis screening: No symptoms or risk factors identified. Assessment: 17:45 Reassessment: Patient appears in no apparent distress at this time. General: Appears in ko1 no apparent distress. comfortable, Behavior is calm, cooperative, appropriate for age. Pain: Complains of pain in chest Pain does not radiate. Pain began gradually. Neuro: No deficits noted. Cardiovascular: Reports chest pain. Respiratory: Reports shortness of breath. GI: No deficits noted. : No deficits noted. EENT: No deficits noted. Derm: No deficits noted. Musculoskeletal: No deficits noted. 19:00 Reassessment: Patient appears in no apparent distress at this time. Patient and/or jb4 family updated on plan of care and expected duration. Pain level reassessed. Patient is alert, oriented x 3, equal unlabored respirations, skin warm/dry/pink. Assumed care from day shift. 20:00 Reassessment: Patient appears in no apparent distress at this time. Patient and/or jb4 family updated on plan of care and expected duration. Pain level reassessed. Patient is alert, oriented x 3, equal unlabored respirations, skin warm/dry/pink. 21:00 Reassessment: Patient appears in no apparent distress at this time. Patient and/or jb4 family updated on plan of care and expected duration. Pain level reassessed. Patient is alert, oriented x 3, equal unlabored respirations, skin warm/dry/pink. 22:00 Reassessment: Patient appears in no apparent distress at this time. Patient and/or jb4 family updated on plan of care and expected duration. Pain level reassessed. Patient is alert, oriented x 3, equal unlabored respirations, skin warm/dry/pink. 23:20 Reassessment: Patient appears in no apparent distress at this time. Patient and/or jb4 family updated on plan of care and expected duration. Pain level reassessed. Patient is alert, oriented x 3, equal unlabored respirations, skin warm/dry/pink. Vital Signs: 17:46 BP 156 / 88; Pulse 81; Resp 16; Temp 97.7; Pulse Ox 100% on R/A; Pain 8/10; tl4 18:32 BP 151 / 94; Pulse 78; Resp 15; Pulse Ox 99% ; ko1 18:51 BP 119 / 80; Pulse 62; Resp 18; Pulse Ox 99% on R/A; rs5 19:15 BP 117 / 74; Pulse 64; Resp 16; Pulse Ox 99% on R/A; jb4 20:30 BP 149 / 80; Pulse 59; Resp 16; Pulse Ox 100% on R/A; jb4 21:30 BP 134 / 85; Pulse 63; Resp 16; Pulse Ox 100% on R/A; jb4 22:30 BP 121 / 77; Pulse 63; Resp 16; Pulse Ox 97% on R/A; jb4 17:46 Pain Scale: Adult tl4 ED Course: 17:28 Patient arrived in ED. rg4 17:31 Tonio Deluna PA is PHCP. cp 17:31 Edwar Brandon MD is Attending Physician. cp 17:50 XRAY Chest (1 view) In Process Unspecified. EDMS 17:50 Inserted saline lock: 20 gauge in right antecubital area, using aseptic technique. rs5 Blood collected. 17:53 Triage completed. tl4 17:54 Michelle Burnette, JAZZY is Primary Nurse. ko1 18:00 No provider procedures requiring assistance completed. Patient maintains SpO2 ko1 saturation greater than 95% on room air. 18:00 Patient has correct armband on for positive identification. Allergy band placed. Placed ko1 in gown. Bed in low position. Call light in reach. Side rails up X2. Provided Education on: na. Client placed on continuous cardiac and pulse oximetry monitoring. NIBP monitoring applied. support group manager on. Door closed. Noise minimized. Lights dimmed. Warm blanket given. 19:09 Lab(s) recollected, by me, sent to lab. jb4 19:36 CT Aorta for Dissection In Process Unspecified. EDMS 20:30 Patient admitted, IV remains in place. jb4 20:50 Oniel Holman MD is Hospitalizing Provider. cp Administered Medications: 17:56 Drug: Aspirin PO Chewable Tablet 324 mg PO once; 81 mg tablets x 4 Route: PO; ko1 18:05 Drug: Nitroglycerin Sublingual 0.4 mg Sublingual once Route: Sublingual; ko1 19:20 Drug: GI Cocktail without - (Maalox PO 30 ml, Lidocaine Mucous Membrane 2 % 15 jb4 ml) PO once Route: PO; Medication: 18:32 VIS not applicable for this client. ko1 Outcome: 20:30 Discharged to home ambulatory, jb4 20:30 Condition: stable 20:30 Discharge instructions given to patient, Instructed on the need for admit, Demonstrated understanding of instructions, 20:51 Decision to Hospitalize by Provider. cp 23:22 Patient left the ED. jb4 Signatures: Dispatcher [employer] EDMT Tonio Deluna PA PA cp Loida Amezquita rg4 Johnathan Lemos RN RN jb4 Michelle Burnette, RN RN ko1 Roger Rosenbaum, RN RN rs5 Yves Jernigan RN RN tl4
[2023-08-03] MEDS ORDERED: MORPHINE 4 MG/ML SYR IV PRN (21:13)
[2023-08-03] MEDS ORDERED: NITROGLYCERIN 0.4 MG/TAB SL PRN (21:13)
--- NOTE | 2023-08-03 21:13 | P.HP ---
Certification for Inpatient Patient admitted to: Observation With expected LOS: <2 Midnights Practitioner: I am a practitioner with admitting privileges, knowledge of patient current condition, hospital course, and medical plan of care. Services: Services provided to patient in accordance with Admission requirements found in Title 42 Section 412.3 of the Code of Federal Regulations Patient History Date of Service: 08/04/23 Reason for admission: Chest pain History of Present Illness: 67-year-old male patient with medical history significant for hyperlipidemia, who was evaluated in the emergency room for episode of chest pain. Pain is retrosternal/anterior chest wall in location with no radiation to the left hand. She denies overt episode of trauma to the chest, nausea, vomiting, fever, chills, cough, shortness of breath. Initial EKG and troponin were no overtly concerning. Patient was started on as needed morphine for pain control was admitted for inpatient care for cardiology evaluation. Allergies acetaminophen [From Vicodin] Allergy (Verified 08/03/23 23:19) Rash butorphanol [From Stadol] Allergy (Verified 08/03/23 23:19) Itching/Hives/Rash droperidol [From Inapsine] Allergy (Verified 08/03/23 23:19) belching and nausea hydrocodone [From Vicodin] Allergy (Verified 08/03/23 23:19) Rash levofloxacin [From Levaquin] Allergy (Verified 08/03/23 23:19) Hives/Rash morphine Allergy (Verified 08/03/23 23:19) Itching Penicillins Allergy (Verified 08/03/23 23:19) Hives/Rash promethazine [From Phenergan] Allergy (Verified 08/03/23 23:19) Itching/Hives/Rash propoxyphene [From Darvocet-N] Allergy (Verified 08/03/23 23:19) Rash Sulfa (Sulfonamide Antibiotics) Allergy (Verified 08/03/23 23:19) Hives/Rash Home Medications: Albuterol Sulfate [Albuterol Sulfate Hfa] 2 puff IH Q6HP PRN 08/03/23 Docosahexanoic AC/Epa [Fish Oil 1,000 MG*] 1,000 mg PO DAILY 08/03/23 Estradiol [Estrace] 1 mg PO DAILY 08/03/23 Magnesium Chloride [Slow-Mag*] 2 tab PO DAILY 08/03/23 Multivitamin [Multivitamins] 1 tab PO DAILY 08/03/23 Review of Systems General: Unremarkable Eyes: Unremarkable ENT: Unremarkable Respiratory: Unremarkable Cardiovascular: Chest Pain Gastrointestinal: Unremarkable Genitourinary: Unremarkable Musculoskeletal: Unremarkable Integumentary: Unremarkable Neurological: Unremarkable Lymphatics: Unremarkable Physical Examination - Physical Exam General: Alert, Oriented x3 HEENT: Atraumatic Neck: Supple Respiratory: Normal air movement Cardiovascular: Regular rate/rhythm, Normal S1 S2 Gastrointestinal: Soft and benign Musculoskeletal: No swelling Neurological: Normal speech, Normal strength at 5/5 x4 extr - Studies Laboratory Data (last 24 hrs) 08/03/23 08/03/23 08/03/23 19:00 18:10 18:10 WBC 5.90 Hgb 13.0 Hct 38.0 Plt Count 185 PT 12.4 INR 1.13 Sodium 138 Potassium 3.8 BUN 15 Creatinine 0.87 Glucose 106 Magnesium 2.3 Total Bilirubin 1.2 H AST 16 ALT 32 Alkaline Phosphatase 58 Assessment and Plan - Plan Chest pain: Episode is concerning for ACS. Troponin trend started. Morphine to be continued for pain control. Aspirin therapy started. Echocardiogram to be obtained. Cardiology to evaluate for management recommendation. Prophylaxis: Lovenox for DVT prophylaxis CODE STATUS: Full code Disposition: We will workup chest pain for ACS and she will be discharged once cleared by cardiology service. - Advance Directives Does patient have a Living Will: No Does patient have a Durable POA for Healthcare: No
[2023-08-03] MEDS: ONDANSETRON 4 MG/2 ML VIAL IV PRN (22:31)
[2023-08-03 23:26] VITALS: BMI 29.2
[2023-08-04] MEDS: ACETAMINOPHEN 500 MG TAB PO PRN (01:08)
[2023-08-04] MEDS ORDERED: MORPHINE 2 MG/ML SYR IV PRN (01:27)
[2023-08-04] MEDS ORDERED: HYDROMORPHONE HCL 0.5 MG/0.5 ML INJ IV PRN (01:31)
[2023-08-04 04:21] LABS: Hematocrit 36.5 % (36.0-45.0); Hemoglobin 12.4 g/dL (12.0-15.0); MCV 93.7 fL (80-100); RBC Red Blood Cell Count 3.89 M/uL (3.86-4.86)
[2023-08-04 04:22] LABS: Absolute Eosinophils 0.1 K/uL (0-0.5); Absolute Lymphocytes (CBC) 1.5 K/uL (0.7-4.9); Basophils % 0.5 % (0-1.3); Eosinophils % 2.8 % (0-4.4); Platelets 165 thou/uL (152-406)
[2023-08-04] MEDS: ASPIRIN EC 81 MG TAB PO SCH (08:49)
[2023-08-04] MEDS: ENOXAPARIN 40 MG/0.4 ML SQ SCH (08:49)
[2023-08-04] MEDS ORDERED: MELATONIN 3 MG TABLET PO PRN (11:54)
[2023-08-04] MEDS ORDERED: ALBUTEROL 2.5 MG/3 ML NEB SOL NEB PRN (12:09)
--- NOTE | 2023-08-04 13:04 | P.PN ---
Subjective Date of Service: 08/04/23 Chief Complaint: Chest pain Patient described chest pain associated with shortness of breath, worse with exertion, occurred while she was climbing stairs. She currently reports mild left anterior chest pain radiating to the back. Physical Examination - Vital Signs Temperature: 97.7 F Blood Pressure: 132/74 Pulse: 61 Respirations: 18 Pulse Ox (%): 95 - Physical Exam General: Alert, In no apparent distress, Oriented x3 HEENT: Mucous membr. moist/pink Neck: Supple, JVD not distended Respiratory: Clear to auscultation bilaterally, Normal air movement Cardiovascular: No edema, Regular rate/rhythm, Normal S1 S2 Gastrointestinal: Normal bowel sounds, Soft and benign, Non-distended Musculoskeletal: No swelling Integumentary: No rashes, No cyanosis Neurological: Normal strength at 5/5 x4 extr - Studies Laboratory Data (last 24 hrs) 08/03/23 08/03/23 08/03/23 19:00 18:10 18:10 WBC 5.90 Hgb 13.0 Hct 38.0 Plt Count 185 PT 12.4 INR 1.13 Sodium 138 Potassium 3.8 BUN 15 Creatinine 0.87 Glucose 106 Magnesium 2.3 Total Bilirubin 1.2 H AST 16 ALT 32 Alkaline Phosphatase 58 Assessment And Plan - Current Problems (Diagnosis) (1) Chest pain Current Visit: Yes Status: Acute - Plan Chest pain Appeared typical Troponin x [address] dissection shows no aneurysm or dissection. Echocardiogram ordered. Cardiology consulted to assist with management. Aspirin. Lipitor Patient has bradycardia and so we are holding metoprolol. History of asthma Stable Bronchodilators as needed. DVT prophylaxis: Lovenox
[2023-08-04] MEDS: PANTOPRAZOLE 40MG TABLET PO SCH (16:10)
--- NOTE | 2023-08-04 17:06 | EKG ---
Test Date: 2023-08-03 Test Time: 22:01:49 Registrar Assistant: VARGHESE MEASUREMENT RESULTS: Intervals: Rate: 66 DC: 176 QRSD: 82 QT: 414 QTc: 434 [place]: P: 69 DC: 176 QRS: 51 T: 47 INTERPRETIVE STATEMENTS: Normal sinus rhythm with sinus arrhythmia Cannot rule out Anterior infarct, age undetermined Abnormal ECG Compared to ECG 08/03/2023 17:28:54 No significant changes Electronically Signed On 08-04-23 17:02:53 OPENSTACK DEVELOPER by Torres Mendoza
--- NOTE | 2023-08-04 17:06 | EKG ---
Test Date: 2023-08-03 Test Time: 17:28:54 [employer] Pres[employer] Teacher: TL MEASUREMENT RESULTS: Intervals: Rate: 68 MS: 160 QRSD: 80 QT: 390 QTc: 414 [place]: P: 50 MS: 160 QRS: 24 T: 34 INTERPRETIVE STATEMENTS: Normal sinus rhythm Low voltage QRS Cannot rule out Anterior infarct, age undetermined Abnormal ECG Compared to ECG 11/02/2008 14:05:55 Low QRS voltage now present Myocardial infarct finding now present Electronically Signed On 08-04-23 17:03:23 [employer] PLANNER by Torres Mendoza
--- NOTE | 2023-08-04 19:51 | CON ---
Date of Consultation: 08/04/2023 Reason For Consultation: Chest pain. History Of Present Illness: 67-year-old female, history of dyslipidemia, no other medical problems, presented with chest pressure, radiated to her left shoulder and in between her shoulder blades. She usually can walk a mile on a daily basis, but nowadays, she is not able to do that because of limita tion with chest pressure and shortness of breath and at rest, she is not having any pain, but minimal activities produces her pain. Denies having any diaphoresis, nausea, vomiting, and no history of ca rdiac disease. At the present time, she is chest-pain free. Past Medical History: Dyslipidemia. Medications: Refer to reconciliation sheet for detailed list. Allergies: ACETAMINOPHEN, HYDROCODONE, LEVOFLOXACIN, MORPHINE, PENICILLIN, SULFA, AND PROPOXYPHENE. Family History: No premature coronary artery disease or cancer. Social History: She does not smoke or drink. Does not use any drugs. Review of Systems: All systems reviewed, they are negative except mentioned in HPI. Physical Examination: Vital Signs: Reviewed. Head and Neck: Pupils are equal, reactive to light. Intact eye movements. No JVD. No cervical lym phadenopathy. Neck: Supple. Thyroid is not enlarged. Lungs: Clear to auscultation bilaterally. No rhonchi, rales, or crackles. No accessory muscle use. Heart: Regular rate and rhythm. No extra sounds. Abdomen: Soft, nontender. Bowel sounds positive. No organomegaly. No masses or hernia. No rigidi ty or rebound. Extremities: No edema, clubbing, cyanosis. Intact pulses. Skin: No rashes noted. Neurologic: Alert, awake, oriented x3. No acute focal deficits appreciated. Lymph Nodes: No cervical or axillary lymphadenopathy. Investigations: Cardiac enzymes x3 are negative. BUN 15, creatinine 0.87, and hemoglobin is 12.4. Assessment/recommendation: 1.Chest pain, very typical symptoms and limiting her exercise, activities, even walking produces her pain. Cardiac enzymes are negative. This is highly suggestive of unstable angina. Recommendation is to continue aspirin and statin. N.p.o. past midnight. Plan for coronary angiogram tomorrow. 2.Dyslipidemia. Continue Lipitor 40 mg q.h.s. 3.Shortness of breath, probably unstable angina. I will obtain an echocardiogram to further evaluat e. CT of the chest with contrast did not show any acute abnormalities. Further recommendation will follow after the above testing. /GWENDOLYN Voice ID: [id number] Report ID: [id number]
[2023-08-04] MEDS: MAGNES/ALUMIN/SIMET 30ML UCUP PO PRN (20:04)
[2023-08-04] MEDS: ATORVASTATIN 20 MG TAB PO SCH (20:04)
[2023-08-04] MEDS: TRAZODONE 50 MG TABLET PO PRN (21:23)
[2023-08-05 04:25] LABS: Absolute Eosinophils 0.1 K/uL (0-0.5); Absolute Lymphocytes (CBC) 1.6 K/uL (0.7-4.9); Basophils % 0.5 % (0-1.3); Eosinophils % 2.9 % (0-4.4); Hematocrit 36.8 % (36.0-45.0); Hemoglobin 12.6 g/dL (12.0-15.0); Lymphocytes % 30.1 % (15.3-44.8); MCV 94.1 fL (80-100); MPV 9.5 fL (7.6-11.3); Platelets 165 thou/uL (152-406); RBC Red Blood Cell Count 3.91 M/uL (3.86-4.86)
[2023-08-05] MEDS ORDERED: HEPA 1000U/500MLS 2,000 UNIT/1,000 ML BAG IV ONE (06:16)
[2023-08-05] MEDS ORDERED: LIDOCAINE 1% 20 ML MDV ONE (06:17)
[2023-08-05] MEDS ORDERED: FENTANYL CITR 100 MCG/2 ML ONE (06:30)
[2023-08-05] MEDS ORDERED: VERAPAMIL HCL 10 MG/4 ML VIAL IV ONE (06:30)
[2023-08-05] MEDS ORDERED: ATROPINE SULF 1 MG/10 ML SYR IV ONE (06:30)
[2023-08-05] MEDS ORDERED: MIDAZOLAM HCL 2 MG/2 ML INJ ONE (06:30)
[2023-08-05] MEDS ORDERED: NITROGLYCERIN/D5W 25 MG/250 ML BTL IV ONE (06:30)
[2023-08-05] MEDS ORDERED: TICAGRELOR 90 MG TABLET PO ONE (06:31)
[2023-08-05] MEDS ORDERED: CLOPIDOGREL 75 MG TABLET ONE (06:31)
[2023-08-05] MEDS ORDERED: HEPARIN 5000 UNIT/ML 1 ML VIAL ONE (06:31)
[2023-08-05] MEDS ORDERED: HEPARIN 10,000 UNIT/10 ML VIAL IV ONE (06:31)
[2023-08-05] MEDS ORDERED: ASPIRIN 81 MG CHEWABLE TABLET ONE (06:32)
[2023-08-05] MEDS ORDERED: NA CHLORIDE 0.9% 500 ML ONE (06:37)
--- NOTE | 2023-08-05 08:55 | P.PN ---
Subjective Date of Service: 08/05/23 Chief Complaint: Chest pain Subjective: No new changes Review of Systems 10-point ROS is otherwise unremarkable Physical Examination - Vital Signs Temperature: 98.2 F Blood Pressure: 103/60 Pulse: 65 Respirations: 16 Pulse Ox (%): 96 - Physical Exam General: Alert HEENT: Atraumatic Neck: Supple Respiratory: Clear to auscultation bilaterally Cardiovascular: No edema, Normal S1 S2 Gastrointestinal: Normal bowel sounds Assessment And Plan - Current Problems (Diagnosis) (1) Chest pain Current Visit: Yes Status: Acute Plan: Non cardiac in origin as patient had a coronary angiogram done today that shows normal coronaries. Continue medical management. (2) Hyperlipidemia Current Visit: Yes Status: Acute Plan: Continue lipitor 40 mg daily and follow up with PCP for lipid panel.
[2023-08-05 09:53] VITALS: O2SAT 100
[2023-08-05] MEDS: MAGNESIUM CHLORIDE 64 MG TAB PO SCH (09:53)
[2023-08-05] MEDS: MULTIVITAMIN TAB PO SCH (09:53)
--- NOTE | 2023-08-05 10:59 | P.DS ---
Admission Date: 08/03/23 Discharge Date: 08/05/23 Disposition: ROUTINE DISCHARGE Discharge Condition: FAIR Reason for Admission: Chest pain - Problems (1) Chest pain Status: Acute Brief History of Present Illness: 67-year-old male patient with medical history significant for hyperlipidemia, who was evaluated in the emergency room for episode of chest pain. Patient described an anterior chest pain, radiating to the back, which occured after climbing stairs, associated with shortness of breath. She denies overt episode of trauma to the chest, nausea, vomiting, fever, chills, or cough. Initial EKG and troponin were negative for acute ischemia. Patient was hospitalized for ACS rule out. Hospital Course: Patient admitted to the medical floor and the following medical problems addressed: Chest pain Appeared typical Troponin x [address] dissection shows no aneurysm or dissection. Echocardiogram was unremarkable and showed normal EF. Seen by cardiology, cardiac catheterization performed which showed normal coronary arteries. Patient deemed stable for discharge. She is discharged with lipitor. Aspirin was avoided given her history of GERD. History of asthma Was stable during the hospital stay. Vital Signs/Physical Exam: Temp Pulse Resp BP Pulse Ox 97.3 F 62 16 113/66 98 08/05/23 09:53 08/05/23 09:53 08/05/23 09:53 08/05/23 09:53 08/05/23 09:53 General: Alert, In no apparent distress, Oriented x3 HEENT: Mucous membr. moist/pink Neck: Supple, JVD not distended Respiratory: Clear to auscultation bilaterally, Normal air movement Cardiovascular: Regular rate/rhythm, Normal S1 S2 Gastrointestinal: Normal bowel sounds, Soft and benign, Non-distended, No tenderness Musculoskeletal: No swelling Integumentary: No rashes, No cyanosis Neurological: Normal strength at 5/5 x4 extr Laboratory Data at Discharge: WBC 5.20 thou/uL (4.3-10.9) 08/05/23 03:25 Hgb 12.6 g/dL (12.0-15.0) 08/05/23 03:25 Hct 36.8 % (36.0-45.0) 08/05/23 03:25 Plt Count 165 thou/uL (152-406) 08/05/23 03:25 PT 12.4 SECONDS (9.5-12.5) 08/03/23 19:00 INR 1.13 08/03/23 19:00 Sodium 138 mEq/L (136-145) 08/03/23 18:10 Potassium 4.0 mEq/L (3.5-5.1) 08/04/23 03:36 BUN 15 mg/dL (7-18) 08/03/23 18:10 Creatinine 0.87 mg/dL (0.55-1.02) 08/03/23 18:10 Glucose 106 mg/dL (74-106) 08/03/23 18:10 Magnesium 2.3 mg/dL (1.6-2.4) 08/03/23 18:10 Total Bilirubin 1.2 mg/dL (0.2-1.0) H 08/03/23 18:10 AST 16 U/L (15-37) 08/03/23 18:10 ALT 32 U/L (13-56) 08/03/23 18:10 Alkaline Phosphatase 58 U/L (45-117) 08/03/23 18:10 Triglycerides 56 mg/dL (<150) 08/04/23 03:36 Cholesterol 193 mg/dL (<200) 08/04/23 03:36 HDL Cholesterol 63 mg/dL (40-60) H 08/04/23 03:36 Cholesterol/HDL Ratio 3.06 08/04/23 03:36 Home Medications: Albuterol Sulfate [Albuterol Sulfate Hfa] 2 puff IH Q6HP PRN 08/03/23 Docosahexanoic AC/Epa [Fish Oil 1,000 MG*] 1,000 mg PO DAILY 08/03/23 Estradiol [Estrace] 1 mg PO DAILY 08/03/23 Magnesium Chloride [Slow-Mag*] 2 tab PO DAILY 08/03/23 Multivitamin [Multivitamins] 1 tab PO DAILY 08/03/23 Atorvastatin Calcium [Lipitor] 40 mg PO DAILY #30 tab 08/05/23 Pantoprazole [Protonix Tab*] 40 mg PO DAILY #30 tab 08/05/23 New Medications: Atorvastatin Calcium [Lipitor] 40 mg PO DAILY #30 tab Pantoprazole [Protonix Tab*] 40 mg PO DAILY #30 tab Followup: Torres Mendoza MD [ACTIVE - CAN ADMIT] - 1-2 Weeks Prabhakar,Kristen, MD [Primary Care Provider] - 1-2 Weeks Time spent managing pt's care (in minutes): 28
[2023-08-05 12:17] VITALS: BP 113/62; TEMP 98.1
--- NOTE | 2023-08-05 12:32 | ECHO ---
HEIGHT: 5 ft 8 in WEIGHT: 192 lb 11.2 oz DATE OF STUDY: 08/05/[address]: Oniel Holman MD 2-DIMENSIONAL: YES M.MODE: YES DOPPLER: YES COLOR FLOW: YES TDS: PORTABLE: YES DEFINITY: BUBBLE STUDY: DIAGNOSIS: EVALUATE OF CHEST PAIN CARDIAC HISTORY: CATHERIZATION: YES SURGERY: NO PROSTHETIC VALVE: NO PACEMAKER: NO MEASUREMENTS (cm) DIASTOLIC (NORMALS) SYSTOLIC (NORMALS) IVSd 1.2 (0.6-1.2) LA Diam 2.6 (1.9-4.0) LVEF 66% LVIDd 4.6 (3.5-5.7) LVIDs 2.9 (2.0-3.5) %FS 36% LVPWd 1.3 (0.6-1.2) Ao Diam 3.1 (2.0-3.7) 2 DIMENSIONAL ASSESSMENT: RIGHT ATRIUM: NORMAL LEFT ATRIUM: NORMAL RIGHT VENTRICLE: NORMAL LEFT VENTRICLE: MILD LEFT VENTRICULAR HYPERTROPHY TRICUSPID VALVE: NORMAL MITRAL VALVE: NORMAL PULMONIC VALVE: TRACE PULMONIC REGURGITATION AORTIC VALVE: NORMAL PERICARDIAL EFFUSION: NONE AORTIC ROOT: NORMAL LEFT VENTRICULAR WALL MOTION: NORMAL DOPPLER/COLOR FLOW: NORMAL COMMENTS: 1. NORMAL LEFT VENTRICULAR SYSTOLIC AND DIASTOLIC FUNCTION, EJECTION FRACTION 55-60% 2. NORMAL WALL MOTION TECHNOLOGIST: HOA ROBIN
== END 2023-08-05 12:53 | disposition home or self-care (01) ==
LOC: ER 17:27 → ERHOLD 21:13 → 2ND 22:28
PROVIDERS: ADMIT Internal Medicine Nephrology; ATTEND Internal Medicine
DX: R07.9 Chest pain, unspecified (principal); E78.5 Hyperlipidemia, unspecified; Z88.0 Allergy status to penicillin; Z88.2 Allergy status to sulfonamides; Z88.5 Allergy status to narcotic agent; Z88.8 Allergy status to other drugs, medicaments and biological substances
CPT/HCPCS: 93005 ×2; 93306; 85025 ×3; 80048; 36415 ×2; 83735; 84132; 85610; 80061; 80076; 84484 ×3; 83880; 71275; 74175; 71045; 93458; 76937; 99285; Q9967 ×2; C1893; J1644; J2001; J1650; J2250; J3010; J2405; J7040; 99152; 99153; G0378; J0461